=== PATIENT | male | born 1935 | race Caucasian/White ===

== ENCOUNTER 2017-01-15 04:15 | Inpatient (IN) ==
--- NOTE | 2017-01-08 09:07 | EKG Report ---
Test Performed on : 01/08/2017 09:03:25 AM Test Reason : PAT Blood Pressure : / mmHG Vent. Rate : 085 BPM Atrial Rate : 085 BPM P-R Int : 196 ms QRS Dur : 084 ms QT Int : 366 ms P-R-T Axes : 001 -07 074 degrees QTc Int : 435 ms Normal sinus rhythm. Normal ECG When compared with ECG of 04-SEP-2010 11:49, No significant change was found Confirmed by Tor LEE, Julius Baron ([id number]) on 01/08/2017 5:56:38 PM
[2017-01-08 09:20] LABS: HEMATOCRIT 44.6 % (42.0-52.0); HEMOGLOBIN 15.5 g/dL (14.0-18.0); MCH 32.6 PG (27-31); MCHC 34.8 g/dL (33-37); MCV 93.7 FL (81-99); MPV 10.1 FL (7.4-10.4); RBC 4.76 XMIL (4.7-6.1)
[2017-01-08 09:54] LABS: AGAP 14; BUN 9 mg/dL (8-22); CALCIUM 9.4 mg/dL (8.8-10.2); CHLORIDE 103 mmol/L (98-107); COSMO 282; POTASSIUM 4.6 mmol/L (3.5-5.1); SODIUM 142 mmol/L (136-145); TCO2 25 mmol/L (25-35)
[2017-01-15] MEDS ORDERED: VANCOMYCIN 1 GM/NS 1 GM/250 ML IVPB ONE (11:22)
[2017-01-15] MEDS ORDERED: LR 1,000 ML ONE (11:22)
[2017-01-15] MEDS ORDERED: NITROGLYCERIN 50 MG/D5W 0 MG/0 ML IV.SOLN ONE (12:11)
[2017-01-15] MEDS ORDERED: HEPARIN ONE ×2 (12:12)
[2017-01-15] MEDS ORDERED: NS 2,000 ML ONE (12:13)
[2017-01-15] MEDS ORDERED: KEFZOL ONE (12:17)
[2017-01-15] MEDS ORDERED: MARCAINE 0.25% PF/EPI 1:200,000 ONE (13:03)
[2017-01-15 14:03] LABS: URINE MICRO REVIEW NEEDED? NO; URINE SOURCE CATH
[2017-01-15 14:18] LABS: BILIRUBIN URINE NEGATIVE (NEGATIVE); BLOOD URINE NEGATIVE (NEGATIVE); COLOR YELLOW; GLUCOSE URINE NEGATIVE (NEGATIVE); LEUKOCYTES URINE NEGATIVE (NEGATIVE); NITRITE URINE NEGATIVE (NEGATIVE); PH URINE 5.5; PROTEIN URINE NEGATIVE (NEGATIVE); SP GRAVITY URINE 1.016; TURBIDITY URINE CLEAR (CLEAR); UROBILINOGEN URINE NORMAL (NORMAL)
[2017-01-15 14:21] LABS: UR EPITHELIAL CELLS <10 /HPF (<10); URINE BACTERIA NEGATIVE /HPF; URINE RBC <10 /HPF (<10); URINE WBC <10 /HPF (<10)
[2017-01-15] MEDS ORDERED: NS 1,000 ML ONE (15:42)
[2017-01-15] MEDS ORDERED: ZOFRAN IV PRN (16:21)
[2017-01-15] MEDS: NS 1,000 ML IV SCH (16:48)
--- NOTE | 2017-01-15 17:32 | OPERATIVE NOTE ---
PROCEDURE DATE: 01/15/2017 PROCEDURE PERFORMED: Endovascular repair infrarenal abdominal aortic aneurysm. SURGEON: Dr. Shamar Rice [employer]: Ronald Metz MD who assisted with exposure, balloon dilatation of the graft and wound closure. PREOPERATIVE DIAGNOSIS: 5.4 cm infrarenal abdominal aortic aneurysm. POSTOPERATIVE DIAGNOSIS: 5.4 cm infrarenal abdominal aortic aneurysm. DESCRIPTION OF PROCEDURE: Satisfactory general endotracheal anesthesia. The abdomen and groins were prepped and draped in a sterile fashion. Prophylactic vancomycin was given. We anesthetized the skin with 0.25 Marcaine with epinephrine in an oblique fashion in the lower abdomen on both sides. We incised the skin and carried our incision down to the external oblique aponeurosis. We there exposed the common femoral artery as it came out from underneath the inguinal ligament. We surrounded it with an umbilical tape proximally, vessel loop distally. Branch was surrounded with a 2-0 silk. We did that on both sides. We then used a Seldinger technique, passing a needle, followed by wire, followed by a 6-Liberian sheath into the left side as well as the right side. We passed 1st our pigtail up the left side. We passed the Glidewire and the Berenstein catheter, followed by a Campos wire on the right. We then put the main device, which we a predetermined to be a 31 x 14.5 x 17. We used the long device because of the long neck and long common iliacs. After positioning the main device in the aorta, we then used our pigtail to shoot a run and identify the renals. After identifying the renals, we then switched to a Campos wire on the left, followed by the 12-Liberian sheath. We then opened the proximal end of the graft just under the renals. We had positioned it so that the gate was more anterior, primarily anteriorly, but a little bit to the right. We then used a Glidewire and a Berenstein catheter to cannulate the gate. Switched to a pigtail. We twirled the pigtail to prove we were inside the lumen of the graft. We then placed our Campos wire and passed the sheath up inside the gate. I did shoot a retrograde shot before I removed the pigtail, and it was determined that an 11.5 cm long limb was appropriate, so we obtained the 18 x 11.5 and passed it up to the gate and opened it and deployed the catheter and there was no problem with coming above the internal iliac takeoff. We then shot a retrograde run on the right, identified the takeoff of the internal, and then completed our opening of the main graft into the right limb right above the takeoff of the internal. We then passed our large aortic balloon to the proximal end and ballooned the proximal end. We used a 14 x 4 up the left side with the aortic balloon coming down the right side and ballooned the gate, then the bifurcation, then the iliac limbs. Upon completion of that, we put our pigtail back up and shot a completion run. This showed no type 1 leak. There was the possibility of a small type 2 leak, but no obvious type 1 leak was identified. We were completely satisfied with that result. We then removed our sheaths, clamped off the vessels and closed both femorals with 5-0 Prolene stitch. Upon opening the clamps, good pulse was palpated within the vessel and no leak at the suture line. We irrigated both wounds with saline, closed the tissue over the artery with 3-0 Polysorb interrupted stitches and closed the subcutaneous fat with running 2-0 Polysorb stitches the skin was closed with 4-0 Polysorb subcuticular stitch. Island dressings were applied. He tolerated it well, was sent to the recovery room in satisfactory condition. ESTIMATED BLOOD LOSS: 100 mL. CONTRAST USED: 100 mL. cc: MD Juan Page MD
[2017-01-15] MEDS: BUPRENEX IV PRN (17:36)
[2017-01-15] MEDS ORDERED: DIPRIVAN 1% ONE (17:41)
[2017-01-15] MEDS ORDERED: FENTANYL ONE (17:41)
[2017-01-15] MEDS: NORVASC PO SCH (20:26)
[2017-01-15] MEDS: ASPIRIN PO SCH (20:27)
[2017-01-15] MEDS: PRILOSEC PO SCH (20:29)
[2017-01-16] MEDS: VANCOMYCIN 1 GM/NS 1 GM/250 ML IVPB IV SCH ×2 (00:58→13:54)
[2017-01-16] MEDS: NS 1,000 ML IV SCH (02:13)
[2017-01-16] MEDS: BUPRENEX IV PRN (05:12)
[2017-01-16 06:02] LABS: MANUAL DIFF NEEDED? NO
[2017-01-16 06:18] LABS: BASO% 0.3 % (0.0-0.8); EOS# 0.05 X1000 (0.0-0.7); EOS% 0.7 % (0.0-10.0); HEMATOCRIT 38.2 % (42.0-52.0); HEMOGLOBIN 13.2 g/dL (14.0-18.0); IMM GRAN# 0.02 X1000 (0.0-0.04); IMM GRAN% 0.3 % (0.0-0.5); LYMPH# 0.63 X1000 (1.2-3.4); LYMPH% 9.1 % (20.5-51.1); MCH 32.4 PG (27-31); MCHC 34.6 g/dL (33-37); MCV 93.9 FL (81-99); MONO# 0.74 X1000 (0.11-0.59); MONO% 10.7 % (1.7-9.3); MPV 10.8 FL (7.4-10.4); NEUT% 78.9 % (42.2-75.2); PLT 166 X1000 (130-400); RBC 4.07 XMIL (4.7-6.1)
[2017-01-16 06:53] LABS: AGAP 16; BUN 6 mg/dL (8-22); CALCIUM 8.4 mg/dL (8.8-10.2); CHLORIDE 100 mmol/L (98-107); COSMO 272; SODIUM 137 mmol/L (136-145); TCO2 21 mmol/L (25-35)
[2017-01-16] MEDS: THERA M PLUS PO SCH (08:45)
[2017-01-16] MEDS ORDERED: HEPARIN ONE (08:52)
[2017-01-16] MEDS ORDERED: NEOSTIGMINE ONE (08:52)
[2017-01-16] MEDS ORDERED: ZOFRAN ONE (08:53)
[2017-01-16] MEDS ORDERED: NORCURON ONE (08:53)
[2017-01-16] MEDS ORDERED: SODIUM CHLORIDE 0.9% 20 ML ONE (08:53)
[2017-01-16] MEDS ORDERED: XYLOCAINE-MPF 2% ONE (08:53)
[2017-01-16] MEDS ORDERED: LR 2,000 ML ONE (08:53)
[2017-01-16] MEDS ORDERED: EPHEDRINE ONE (08:53)
[2017-01-16] MEDS ORDERED: ROBINUL ONE (08:53)
[2017-01-16] MEDS ORDERED: QUELICIN (DOSE) ONE (08:53)
[2017-01-16] MEDS ORDERED: NS 1,000 ML IV SCH (10:46)
[2017-01-16] MEDS: PERCOCET-10 PO PRN (16:39)
[2017-01-16] MEDS: PRILOSEC PO SCH (20:27)
[2017-01-16] MEDS: NORVASC PO SCH (20:27)
[2017-01-16] MEDS: ASPIRIN PO SCH (20:27)
[2017-01-17] MEDS: VANCOMYCIN 1 GM/NS 1 GM/250 ML IVPB IV SCH (01:09)
[2017-01-17] MEDS: PERCOCET-10 PO PRN (03:03)
[2017-01-17 07:54] VITALS: BP 136/83
[2017-01-17] MEDS: THERA M PLUS PO SCH (09:37)
== END 2017-01-17 10:07 | disposition home or self-care (01) ==
LOC: SURHOLD 04:15 → ICU 16:13 → 4N 01-16 12:33
PROVIDERS: ADMIT Surgery; ATTEND Surgery